=== PATIENT | male | born 1950 | race Asian ===

== ENCOUNTER 2016-10-27 09:42 | Outpatient (CLI) | payer MEDICARE, OTHER ==
--- NOTE | 2016-10-27 12:55 | XRAY Report ---
THREE-VIEW RIGHT FOOT: 10/27/2016 CLINICAL INDICATION: Pain. FINDINGS: AP, lateral, oblique views of the right foot demonstrate no evidence of fracture or disloc ation. The joint spaces are preserved. A small foreign body is noted in the plantar soft tissues, a t the level of the base of the proximal phalanx of the 1st toe. IMPRESSION: SOFT TISSUE SWELLING. TINY FOREIGN BODY IN THE PLANTAR SOFT TISSUES. JOB #: [id number] EXT JOB #:[id number]
== END 2016-10-27 09:43 | disposition home or self-care (01) ==
LOC: DI 09:42
PROVIDERS: ATTEND Internal Medicine
DX: S90.851A Superficial foreign body, right foot, initial encounter (principal)

== ENCOUNTER 2016-12-06 10:07 | Outpatient (CLI) | payer MEDICARE, OTHER | END 2016-12-06 10:08 | disposition home or self-care (01) | LOC: LAB.R 10:07 | PROVIDERS: ATTEND Urology | DX: R97.20 Elevated prostate specific antigen [PSA] (principal) | CPT/HCPCS: 84153 ==

== ENCOUNTER 2016-12-28 12:59 | Emergency (ER) | payer MEDICARE, OTHER ==
[2016-12-28 13:25] LABS: BILIRUBIN,URINE NEGATIVE (NEGATIVE)
[2016-12-28 13:28] LABS: UA CHARGE (STRIP ONLY) YES
[2016-12-28 13:58] LABS: BASOPHILS # (AUTO) 0.1 10^3/uL (0.0-0.1); BASOPHILS % (AUTO) 1.2 %; EOSINOPHILS # (AUTO) 0.2 10^3/uL (0.0-0.7); EOSINOPHILS % (AUTO) 2.5 %; HCT - HEMATOCRIT 42.8 % (42.0-52.0); HGB - HEMOGLOBIN 14.3 g/dL (14.0-18.0); LYMPHOCYTES # (AUTO) 1.7 10^3/uL (1.5-3.5); LYMPHOCYTES % (AUTO) 22.3 %; MEAN CORPUSCULAR HEMOGLOBIN 29.2 pg (27.0-31.0); MEAN CORPUSCULAR HGB CONC 33.5 g/dL (32.0-36.0); MEAN CORPUSCULAR VOLUME 87.3 fL (80.0-94.0); MEAN PLATELET VOLUME 7.6 fL (7.4-11.4); MONOCYTES # (AUTO) 0.5 10^3/uL (0.0-1.0); NEUTROPHILS # (AUTO) 5.1 10^3/uL (1.5-6.6); RED CELL DISTRIBUTION WIDTH 13.3 % (12.0-15.0); UNCORRECTED WHITE BLOOD COUNT 7.6 x10^3/uL; WHITE BLOOD COUNT 7.6 x10^3/uL (4.8-10.8)
[2016-12-28 14:08] LABS: PT - PROTHROMBIN TIME 11.2 secs (9.9-12.6)
[2016-12-28 14:10] LABS: ALBUMIN/GLOBULIN RATIO 1.2 (1.0-2.2); BILIRUBIN,TOTAL 0.5 mg/dL (0.2-1.0); CALCIUM 9.4 mg/dL (8.5-10.3); CREATININE 1.2 mg/dL (0.6-1.2); POTASSIUM 4.2 mmol/L (3.5-5.0); TOTAL PROTEIN 7.6 g/dL (6.7-8.2)
--- NOTE | 2016-12-28 14:46 | CT Preliminary Report ---
Exam: CT Head W/O IMPRESSION: 1. Mild chronic microvascular angiopathy. 2. No CT evidence of acute intracranial abnormality. [facility] SITE ID: [id number]
--- NOTE | 2016-12-28 14:49 | CT Report ---
EXAM: CT HEAD EXAM DATE: 12/28/2016 02:14 PM. CLINICAL HISTORY: Amaurosis fugax. COMPARISON: None. TECHNIQUE: Multiaxial CT images were obtained from the foramen magnum to the vertex. IV contrast: Non e. Reformats: Coronal. In accordance with CT protocol optimization, one or more of the following dose reduction techniques w ere utilized for this exam: automated exposure control, adjustment of mA and/or KV based on patient s ize, or use of iterative reconstructive technique. FINDINGS: Parenchyma: Mild patchy white matter hypoattenuation, compatible with chronic small vessel ischemic c hange. No intraparenchymal hemorrhage, mass effect, or CT findings of evolving acute/subacute infarct . Buchanan-white differentiation is distinct. Extraaxial Spaces: Normal for age. No subdural or epidural collections identified. Ventricles: Normal in size and position. Sinuses: Imaged paranasal sinuses, orbits, and mastoids show no significant abnormality. Bones: No evidence of fracture or calvarial defect. Other: Atherosclerotic calcifications in the bilateral cavernous internal carotid arteries. IMPRESSION: 1. Mild chronic microvascular angiopathy. 2. No CT evidence of acute intracranial abnormality. [facility] Referring Provider Line: [phone] SITE ID: [id number]
--- NOTE | 2016-12-28 14:51 | XRAY Preliminary Report ---
Exam: XR Chest 1 View IMPRESSION: No acute cardiopulmonary abnormality. [facility] SITE ID: [id number]
--- NOTE | 2016-12-28 14:54 | XRAY Report ---
EXAM: CHEST RADIOGRAPHY EXAM DATE: 12/28/2016 01:57 PM. CLINICAL HISTORY: Amaurosis fugax. COMPARISON: None. TECHNIQUE: 1 view. FINDINGS: Lungs/Pleura: No focal opacities are evident. No pleural effusion or pneumothorax. Mediastinum: Within exam limitations, cardiomediastinal contour is normal. Other: Small corticated osseous density in the right acromioclavicular interval, likely sequela of re mote trauma. IMPRESSION: No acute cardiopulmonary abnormality. [facility] Referring Provider Line: [phone] SITE ID: [id number]
--- NOTE | 2016-12-28 17:20 | ED Physician Documentation ---
History of Present Illness - Stated complaint Stated Complaint: BLURRY VISION/DIZZY - Chief complaint Chief Complaint: Neuro - Additonal information Additional information: Patient is a 66-year-old man with a history of dyslipidemia and borderline hypertension not currently treated who had a brief episode earlier today at rest where it felt like a dark shade came across his vision. He felt little lightheaded briefly and the symptoms resolved. He had a mild headache yesterday but has no history of migraine headaches. He denies any temporal tenderness. He had a brief episode of visual problems a couple weeks ago that were brief and he thinks involve the right eye. He has no other complaints. There is no weakness numbness tingling no chest pain shortness of breath. He does have any nausea, vomiting, constipation diarrhea or lower urinary symptoms. He has never had a stroke he does not think he has had an ultrasound of his carotids before. Review of systems: For pertinent positive and negatives in the review of systems please see the history of present illness, otherwise all other systems have been reviewed and are negative. Dragon disclaimer: Parts of this medical record were created using voice recognition technology. Because of the inherent limitations of this system, occasional same sounding word substitutions do occur and persist despite proofreading. Please read the document for context. PD PAST MEDICAL HISTORY - Past Medical History Past Medical History: Yes Cardiovascular: High cholesterol - Past Surgical History Past Surgical History: Yes Ortho: Knee replacement, Rotator cuff repair, Arthroscopic surgery Derm: Skin cancer surgery - Present Medications Home Medications: Ambulatory Orders Medication Instructions Recorded Confirmed Acyclovir 400 mg PO DAILY 12/28/16 12/28/16 Atorvastatin [Lipitor] 10 mg ORAL DAILY 12/28/16 12/28/16 Multivitamin [Multivitamins] 1 each PO 12/28/16 - Allergies Allergies/Adverse Reactions: Allergies Allergy/AdvReac Type Severity Reaction Status Date / Time ceftriaxone Allergy anaphylaxis Verified 12/28/16 13:07 - Social History Does the pt smoke?: No Smoking Status: Never smoker Does the pt drink ETOH?: Yes Does the pt have substance abuse?: No - Immunizations Immunizations are current?: Yes Immunizations: TDAP current <10years PD ED PE NORMAL - Vitals Vital signs reviewed: Yes - General General: Alert and oriented X 3, No acute distress, Well developed/nourished - HEENT HEENT: Atraumatic, PERRL, EOMI, Pharynx benign, Dentition benign - Neck Neck: Supple, no meningeal sign, No bony TTP, No JVD, No bruit - Cardiac Cardiac: RRR, No murmur, No gallop, No rub - Respiratory Respiratory: No respiratory distress, Clear bilaterally - Abdomen Abdomen: Normal bowel sounds, Soft, Non tender, Non distended - Back Back: No CVA TTP - Derm Derm: Normal color, Warm and dry, No rash, Other - Extremities Extremities: No deformity, No tenderness to palpate, Normal ROM s pain, No edema - Neuro Neuro: Alert and oriented X 3, 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, No motor deficit, No sensory deficit - Psych Psych: Normal mood, Normal affect Results - Vitals Vitals: Vital Signs - 24 hr 12/28/16 12/28/16 12/28/16 13:03 14:24 15:19 Temperature 36.6 C Heart Rate 84 83 74 Respiratory 16 15 18 Rate Blood Pressure 148/89 H 150/75 H 151/86 H O2 Saturation 100 99 98 Oxygen O2 Source Room air - Labs Labs: Laboratory Tests 12/28/16 12/28/16 12/28/16 13:18 13:50 13:50 WBC 7.6 RBC 4.90 Hgb 14.3 Hct 42.8 MCV 87.3 MCH 29.2 MCHC 33.5 RDW 13.3 Plt Count 268 MPV 7.6 Neut # 5.1 Lymph # 1.7 [place] # 0.5 Eos # 0.2 Baso # 0.1 Absolute Nucleated RBC 0.00 Nucleated RBCs 0.0 ESR PT 11.2 INR 1.0 Sodium Potassium Chloride Carbon Dioxide Anion Gap BUN Creatinine Estimated GFR (MDRD) Glucose Calcium Total Bilirubin AST ALT Alkaline Phosphatase Troponin I B-Natriuretic Peptide Total Protein Albumin Globulin Albumin/Globulin Ratio Lipase Urine Color YELLOW Urine Clarity CLEAR Urine pH 6.0 Ur Specific [place] <=1.005 Urine Protein NEGATIVE Urine Glucose (UA) NEGATIVE Urine Ketones NEGATIVE Urine Occult Blood NEGATIVE Urine Nitrite NEGATIVE Urine Bilirubin NEGATIVE Urine Urobilinogen 0.2 (NORMAL) Ur Leukocyte Esterase NEGATIVE Ur Microscopic Review NOT INDICATED 12/28/16 12/28/16 12/28/16 13:50 13:50 13:50 WBC RBC Hgb Hct MCV MCH MCHC RDW Plt Count MPV Neut # Lymph # [place] # Eos # Baso # Absolute Nucleated RBC Nucleated RBCs ESR PT INR Sodium 141 Potassium 4.2 Chloride 107 Carbon Dioxide 26 Anion Gap 8.0 BUN 11 Creatinine 1.2 Estimated GFR (MDRD) 60 L Glucose 141 H Calcium 9.4 Total Bilirubin 0.5 AST 27 ALT 30 Alkaline Phosphatase 72 Troponin I < 0.04 B-Natriuretic Peptide 12 Total Protein 7.6 Albumin 4.2 Globulin 3.4 Albumin/Globulin Ratio 1.2 Lipase 66 H Urine Color Urine Clarity Urine pH Ur Specific [place] Urine Protein Urine Glucose (UA) Urine Ketones Urine Occult Blood Urine Nitrite Urine Bilirubin Urine Urobilinogen Ur Leukocyte Esterase Ur Microscopic Review 12/28/16 13:50 WBC RBC Hgb Hct MCV MCH MCHC RDW Plt Count MPV Neut # Lymph # [place] # Eos # Baso # Absolute Nucleated RBC Nucleated RBCs ESR 1 PT INR Sodium Potassium Chloride Carbon Dioxide Anion Gap BUN Creatinine Estimated GFR (MDRD) Glucose Calcium Total Bilirubin AST ALT Alkaline Phosphatase Troponin I B-Natriuretic Peptide Total Protein Albumin Globulin Albumin/Globulin Ratio Lipase Urine Color Urine Clarity Urine pH Ur Specific [place] Urine Protein Urine Glucose (UA) Urine Ketones Urine Occult Blood Urine Nitrite Urine Bilirubin Urine Urobilinogen Ur Leukocyte Esterase Ur Microscopic Review PD MEDICAL DECISION MAKING - ED course Complexity details: reviewed results, re-evaluated patient, considered differential, d/w patient, d/w family, d/w PMD ED course: Well-appearing 66-year-old man with a history of hypertension who looks healthy. He presents with symptoms that might be consistent with amaurosis fugax. Workup was initiated which included EKG. Her EKG is perfectly normal without any ectopy. The [place], QRS QT intervals are normal there is no ST segment elevation depression or T-wave inversion overall was a normal EKG. Chest x-ray was performed and is negative. Ultrasound of the neck showed mild plaques with no significant stenosis. The patient's ESR was negative ruling out temporal arteritis. CT scan of the brain shows microvascular changes that are mild and not unsurprising given the patient's age of 66. Blood work was performed and is normal as well. Eye examination shows normal retinal vessels and sharp optic disc. Overall no obvious extraocular etiology was found I am recommending that the patient follow-up with his nuts and bolts assembler. I gave him a follow-up referral to our ophthalmologists if he is able to get into see him. I did ask him to follow-up with his physician Dr. reese. I did talk with the PA. I did recommend that he take a baby aspirin a day until we get this figured out. Disposition: To home Clinical impression: 1. Possible amaurosis fugax-workup failed to show extraocular or intraocular abnormalities in the emergency department Departure - Departure Disposition: Home, Self Care Clinical Impression: Amaurosis fugax Condition: Good Instructions: Vision Probs Follow-Up: Deangelo Arroyo MD [Provider Admit Priv/Credential] - Comments: You may have experienced a condition called amaurosis fugax. We did workup today including CAT scan of your head, ultrasound of your neck, lab work, and EKG all of which were normal. I would take a baby aspirin a day until he follow -up with her physician and the eye doctor and get this problem figured out. I have given your referral to our grain packer however you can also see your nuts and bolts assembler to make sure that your eyes are functioning normally. If this symptom recurs or any additional symptoms take place you may return for reevaluation.
[2016-12-28 17:29] VITALS: BP 159/91
--- NOTE | 2016-12-29 09:49 | Ultrasound Report ---
CAROTID DUPLEX: 12/28/2016 CLINICAL INDICATION: Amaurosis fugax, loss of vision. TECHNIQUE: Real-time sonographic vascular imaging was performed by the emergency medcl emt through the carotid arteries utilizing both color-flow and Doppler spectral analysis. Multiple door to door sales representative static images were saved for review. Vessel PSV cm/sec 2D Plaque Estimate % EDV cm/sec ICA/CCA PSV % Stenosis RCCA Prox 108 -- RCCA Dist 86 18 RECA 123 -- RT BULB 77 -- 18 0.9 GIL Prox 90 -- 18 1.0 GIL Mid 86 -- 25 1.0 GIL Dist 74 -- 26 0.9 RVA 44 RVA flow direction: Antegrade. Vessel PSV cm/sec 2D Plaque Estimate % EDV cm/sec ICA/CCA PSV % Stenosis LCCA Prox 139 -- LCCA Dist 78 20 LECA 73 -- LFT BULB 63 -- 20 0.8 LICA Prox 77 -- 20 1.0 LICA Mid 79 -- 27 1.0 LICA Dist 99 -- 36 1.3 LVA 40 LVA flow direction: Antegrade. Velocity criteria are extrapolated from diameter data as defined by the Society of Radiologists in Ultrasound Consensus Conference Radiology 2003; 229; 340-346. Degree of Stenosis % ICA PSV cm/sec Plaque Estimate % ICA/CCA RSV Ratio ICA EDV cm/sec Normal < 125 None < 2.0 < 40 <50 < 125 < 50 < 2.0 < 40 50-69 125 - 130 >/= 50 2.0 - 4.0 40 - 100 >/= 70 but less than near occlusion > 230 >/= 50 > 4.0 > 100 Near occlusion High, low, or undetectable Visible lumen Variable Variable Total occlusion Undetectable No detectable lumen Not applicable Not applicable FINDINGS RIGHT: There is mild plaquing in the right carotid bifurcation, without evidence of a focal hemodynamically significant stenosis. LEFT: There is mild plaquing in the left carotid bifurcation, without evidence of a focal hemodynamically significant stenosis. The vertebral arteries demonstrate antegrade flow bilaterally. IMPRESSION: NO EVIDENCE OF A HEMODYNAMICALLY SIGNIFICANT CAROTID STENOSIS. MTDD
== END 2016-12-28 17:29 | disposition home or self-care (01) ==
LOC: ED 12:59
DX: H53.8 Other visual disturbances (principal); R42 Dizziness and giddiness; E78.5 Hyperlipidemia, unspecified; I10 Essential (primary) hypertension; Z96.659 Presence of unspecified artificial knee joint
CPT/HCPCS: 36415; 70450; 71010; 80053; 81001; 81003; 83690; 83880; 84484; 85025; 85610; 85651; 87086; 93005; 93880; 99283

== ENCOUNTER 2018-02-28 09:35 | Outpatient (CLI) | payer MEDICARE, OTHER ==
[2018-02-28 19:59] LABS: BASOPHILS # (AUTO) 0.1 10^3/uL (0.0-0.1); BASOPHILS % (AUTO) 0.8 %; EOSINOPHILS # (AUTO) 0.2 10^3/uL (0.0-0.7); EOSINOPHILS % (AUTO) 2.9 %; HGB - HEMOGLOBIN 14.7 g/dL (14.0-18.0); LYMPHOCYTES # (AUTO) 1.6 10^3/uL (1.5-3.5); LYMPHOCYTES % (AUTO) 23.6 %; MEAN CORPUSCULAR HEMOGLOBIN 30.9 pg (27.0-31.0); MEAN CORPUSCULAR HGB CONC 35.2 g/dL (32.0-36.0); MEAN CORPUSCULAR VOLUME 87.8 fL (80.0-94.0); MEAN PLATELET VOLUME 8.5 fL (7.4-11.4); MONOCYTES # (AUTO) 0.6 10^3/uL (0.0-1.0); MONOCYTES % (AUTO) 8.1 %; NEUTROPHILS # (AUTO) 4.4 10^3/uL (1.5-6.6); NEUTROPHILS % (AUTO) 64.6 %; PLT - PLATELET COUNT 268 10^3/uL (130-450); RED BLOOD COUNT 4.75 10^6/uL (4.70-6.10); RED CELL DISTRIBUTION WIDTH 13.4 % (12.0-15.0); WHITE BLOOD COUNT 6.9 x10^3/uL (4.8-10.8)
[2018-02-28 20:21] LABS: ALBUMIN 4.2 g/dL (3.2-5.5); ALBUMIN/GLOBULIN RATIO 1.2 (1.0-2.2); ALKALINE PHOSPHATASE 74 IU/L (42-121); ALT ALANINE AMINOTRANSFERASE 27 IU/L (10-60); AST ASPARTATE AMINOTRANSFERASE 28 IU/L (10-42); BILIRUBIN,TOTAL 0.8 mg/dL (0.2-1.0); BUN - BLOOD UREA NITROGEN 14 mg/dL (6-20); CALCIUM 9.1 mg/dL (8.5-10.3); CARBON DIOXIDE - CO2 26 mmol/L (21-32); CHLORIDE 101 mmol/L (101-111); CHOLESTEROL 182 mg/dL; CREATININE 1.1 mg/dL (0.6-1.2); GFR - MDRD 66 (>89); GLUCOSE 86 mg/dL (70-100); HDL CHOLESTEROL 61 mg/dL; LDL CHOLESTEROL,CALCULATED 78 mg/dL; LDL/HDL RATIO 1.3 (<3.6); SODIUM 134 mmol/L (135-145); TOTAL PROTEIN 7.6 g/dL (6.7-8.2); VLDL CHOLESTEROL 43 mg/dL
== END 2018-02-28 23:59 | disposition home or self-care (01) ==
LOC: LAB.R 09:35
PROVIDERS: ATTEND Internal Medicine
DX: R03.0 Elevated blood-pressure reading, without diagnosis of hypertension (principal); E78.5 Hyperlipidemia, unspecified; Z12.5 Encounter for screening for malignant neoplasm of prostate; R73.01 Impaired fasting glucose
CPT/HCPCS: 80053; 80061; 84443; 85025; G0103; 83721; 84153

== ENCOUNTER 2018-12-08 00:52 | Emergency (ER) | payer MEDICARE, OTHER ==
--- NOTE | 2018-12-08 02:33 | ED Physician Documentation ---
PD HPI ABD PAIN - Stated complaint Stated Complaint: ABD DISTENTION - Chief complaint Chief Complaint: Abd Pain - History obtained from History obtained from: Patient - History of Present Illness Timing - onset: Yesterday Timing - details: Gradual onset Location: Epigastric Associated symptoms: No: Fever, Nausea, Vomiting, Diarrhea, Constipation Similar symptoms before: Has not had sx before Recently seen: Not recently seen - Additional information Additional information: c/o pruritic erythematous area on abdomen since yesterday. Recently had long motorcycle ride and symptoms seemed to start during this trip. Also notes abdominal swelling in same area without significant tenderness Review of Systems Constitutional: denies: Fever, Chills, Sweats GI: reports: Abdominal Swelling (intermittent, midline). denies: Abdominal Pain, Nausea, Vomiting, Constipation, Diarrhea Skin: reports: Rash PD PAST MEDICAL HISTORY - Past Medical History Cardiovascular: High cholesterol Musculoskeletal: Osteoarthritis Other Past Medical History: skin cancers. inguinal hernia with repair at age 3 - Past Surgical History Past Surgical History: Yes Ortho: Knee replacement, Rotator cuff repair, Arthroscopic surgery Derm: Skin cancer surgery - Present Medications Home Medications: Ambulatory Orders Medication Instructions Recorded Confirmed Acyclovir 400 mg PO DAILY PRN 12/28/16 12/08/18 Atorvastatin [Lipitor] 10 mg ORAL DAILY 12/28/16 12/08/18 Multivitamin [Multivitamins] 1 each PO DAILY 12/28/16 12/08/18 Hydrocortisone Valerate 1 film TP BID #1 cream..g. 12/08/18 Mupirocin Calcium [Mupirocin] 1 film TP BID #1 cream..g. 12/08/18 Sulfamethox/Trimeth 800/160 1 each PO BID #14 tablet 12/08/18 [Bactrim Ds 800/160] - Allergies Allergies/Adverse Reactions: Allergies Allergy/AdvReac Type Severity Reaction Status Date / Time ceftriaxone Allergy anaphylaxis Verified 12/08/18 01:05 - Social History Does the pt smoke?: No Smoking Status: Former smoker Does the pt drink ETOH?: Yes ETOH Use: Beer Does the pt have substance abuse?: No - Immunizations Immunizations are current?: Yes Immunizations: TDAP current <10years - POLST Patient has POLST: No PD ED PE NORMAL - Vitals Vital signs reviewed: Yes - General General: Alert and oriented X 3, No acute distress, Well developed/nourished - Abdomen Abdomen: Normal bowel sounds, Soft, Non tender, Non distended PD ED PE EXPANDED - Abdomen Abdomen Visual: 1 - swelling (midline symmetric swelling that only appears with valsalva (starting to sit up, eg), and is nontender and soft and reduces immediately simply with lying supine and relaxing abdominal wall muscles) 2 - rash (oval-shaped flat erythema with sharp margins, 3cm x 2cm without fluctuance) Results - Vitals Vitals: Vital Signs - 24 hr 12/08/18 12/08/18 12/08/18 01:01 01:14 02:54 Temperature 36.3 C L 36.8 C 36.4 C L Heart Rate 93 85 82 Respiratory 16 18 16 Rate Blood Pressure 150/86 H 152/86 H 146/93 H O2 Saturation 96 100 96 12/08/18 03:15 Temperature 36.7 C Heart Rate 75 Respiratory 16 Rate Blood Pressure 141/89 H O2 Saturation 96 Oxygen O2 Source Room air PD MEDICAL DECISION MAKING - ED course Complexity details: considered differential, d/w patient ED course: lesion on abdominal wall is s/o cellulitis and thus will cover with topical and PO antibiotic. its appearance is related temporally to a long motorcycle trip and this, combined with the intense pruritis, could also be c/w contact dermatitis and thus also rx topical steroid. The midline hernia is a coincident finding and does not need emergent testing or treatment Departure - Departure Disposition: 01 Home, Self Care Clinical Impression: Abdominal hernia, Cellulitis of abdominal wall Condition: Good Instructions: ED Infec Skin Cellulitis Follow-Up: Medardo Herndon MD [Primary Care Provider] - Within 1 week Prescriptions: Hydrocortisone Valerate 1 film TP BID #1 cream..g. Mupirocin Calcium [Mupirocin] 1 film TP BID #1 cream..g. Sulfamethox/Trimeth 800/160 [Bactrim Ds 800/160] 1 each PO BID #14 tablet Discharge Date/Time: 12/08/18 03:22
[2018-12-08] MEDS ORDERED: SULFAMETH/TRIMETH DS 800/160 MG TABLET PO STA (03:04)
[2018-12-08] MEDS ORDERED: MUPIROCIN 2% OINT 1 GM TOP STA (03:04)
[2018-12-08 03:16] VITALS: BP 141/89
== END 2018-12-08 03:22 | disposition home or self-care (01) ==
LOC: ED 00:52
DX: L03.311 Cellulitis of abdominal wall (principal); K46.9 Unspecified abdominal hernia without obstruction or gangrene; Z87.891 Personal history of nicotine dependence
CPT/HCPCS: 99283; A9270

== ENCOUNTER 2019-12-17 10:04 | Outpatient (CLI) | payer MEDICARE, OTHER ==
[2019-12-17 10:24] LABS: BASOPHILS # (AUTO) 0.1 10^3/uL (0.0-0.1); BASOPHILS % (AUTO) 0.8 %; EOSINOPHILS # (AUTO) 0.1 10^3/uL (0.0-0.7); EOSINOPHILS % (AUTO) 1.9 %; HGB - HEMOGLOBIN 14.6 g/dL (14.0-18.0); LYMPHOCYTES # (AUTO) 1.7 10^3/uL (1.5-3.5); MEAN CORPUSCULAR HEMOGLOBIN 30.2 pg (27.0-31.0); MEAN CORPUSCULAR HGB CONC 33.7 g/dL (32.0-36.0); MEAN CORPUSCULAR VOLUME 89.5 fL (80.0-94.0); MEAN PLATELET VOLUME 9.5 fL (7.4-11.4); MONOCYTES # (AUTO) 0.7 10^3/uL (0.0-1.0); MONOCYTES % (AUTO) 8.8 %; NEUTROPHILS # (AUTO) 4.8 10^3/uL (1.5-6.6); NEUTROPHILS % (AUTO) 65.1 %; PLT - PLATELET COUNT 311 10^3/uL (130-450); RED BLOOD COUNT 4.84 10^6/uL (4.70-6.10); RED CELL DISTRIBUTION WIDTH 12.6 % (12.0-15.0); WHITE BLOOD COUNT 7.4 x10^3/uL (4.8-10.8)
[2019-12-17 10:39] LABS: ALBUMIN 4.3 g/dL (3.2-5.5); ALBUMIN/GLOBULIN RATIO 1.2 (1.0-2.2); ALKALINE PHOSPHATASE 75 IU/L (42-121); ALT ALANINE AMINOTRANSFERASE 22 IU/L (10-60); AST ASPARTATE AMINOTRANSFERASE 22 IU/L (10-42); BILIRUBIN,TOTAL 0.8 mg/dL (0.2-1.0); BUN - BLOOD UREA NITROGEN 17 mg/dL (6-20); CALCIUM 9.4 mg/dL (8.5-10.3); CARBON DIOXIDE - CO2 25 mmol/L (21-32); CHLORIDE 104 mmol/L (101-111); CHOL/HDL RATIO 3.1 (<5.0); CHOLESTEROL 183 mg/dL; CREATININE 1.1 mg/dL (0.6-1.2); GLUCOSE 101 mg/dL (70-100); HDL CHOLESTEROL 59 mg/dL; LDL CHOLESTEROL,CALCULATED 102 mg/dL; LDL/HDL RATIO 1.7 (<3.6); SODIUM 138 mmol/L (135-145); TOTAL PROTEIN 7.8 g/dL (6.7-8.2); VLDL CHOLESTEROL 22 mg/dL
== END 2019-12-17 10:05 | disposition home or self-care (01) ==
LOC: LAB 10:04
PROVIDERS: ATTEND Family Medicine
DX: Z01.84 Encounter for antibody response examination (principal); E78.5 Hyperlipidemia, unspecified; E66.3 Overweight; Z68.25 Body mass index [BMI] 25.0-25.9, adult
CPT/HCPCS: 36415; 80053; 80061; 83721; 85025; 86769

== ENCOUNTER 2020-01-27 17:47 | Outpatient (CLI) | payer MEDICARE, OTHER | END 2020-01-27 17:48 | disposition home or self-care (01) | LOC: COV 17:47 | PROVIDERS: ATTEND Family Medicine | DX: R50.9 Fever, unspecified (principal); R05 Cough; M79.10 Myalgia, unspecified site; Z20.828 Contact with and (suspected) exposure to other viral communicable diseases ==

== ENCOUNTER 2020-05-14 10:14 | Outpatient (CLI) | payer MEDICARE, OTHER | END 2020-05-14 10:15 | disposition home or self-care (01) | LOC: LAB 10:14 | PROVIDERS: ATTEND Urology | DX: R97.20 Elevated prostate specific antigen [PSA] (principal); N40.1 Benign prostatic hyperplasia with lower urinary tract symptoms | CPT/HCPCS: 36415; 84153 ==

== ENCOUNTER 2020-11-11 13:15 | Outpatient (CLI) | payer MEDICARE, OTHER ==
--- NOTE | 2020-11-11 16:40 | MRI Report ---
PROCEDURE: Shoulder LT W/O INDICATIONS: CHRONIC LEFT SHOULDER PAIN TECHNIQUE: Noncontrast oblique coronal T2 fast spin echo with fat saturation, oblique sagittal T1 spin echo and T2 fast spin echo with fat saturation, axial T1 spin echo and T2 fast spin echo with fat saturation t hrough the shoulder. COMPARISON: None. FINDINGS: Image quality: There is motion artifact limiting evaluation. Rotator cuff: There is mild tendinopathy in the distal supraspinatus with minimal bursal sided frayi ng, but the majority of the supraspinatus appears grossly intact. The infraspinatus, subscapularis, a nd teres minor appears intact. No rotator cuff muscle atrophy on sagittal images. Bones and bursae: No bone marrow contusions or fractures. There is moderate acromioclavicular joint degeneration. The acromion demonstrates conventional anatomy, without an os acromiale. A small yunier unt of subacromial/subdeltoid bursal fluid is present. There is mild glenohumeral joint degeneration. Capsule and soft tissues: There is mild tearing in the posterosuperior labrum. In the absence of int ra-articular contrast, the glenohumeral ligaments appear intact. The long head of the biceps tendon demonstrates normal location and morphology. The coracohumeral ligament is normal in thickness. IMPRESSION: 1. Mild tendinopathy of the distal supraspinatus which appears grossly intact with minimal bursal merced ed fraying distally. 2. Moderate acromioclavicular joint degeneration with a small amount of subacromial/subdeltoid bursal fluid. 3. Mild tearing in the posterosuperior labrum. Reviewed by: Cristian Bacon MD on 11/11/2020 4:38 PM PDT Approved by: Cristian Bacon MD on 11/11/2020 4:38 PM PDT Station ID: [id number]
== END 2020-11-11 13:16 | disposition home or self-care (01) ==
LOC: DI 13:15
PROVIDERS: ATTEND Physical Medicine & Rehabilitation
DX: M75.92 Shoulder lesion, unspecified, left shoulder (principal); S43.492A Other sprain of left shoulder joint, initial encounter

== ENCOUNTER 2021-02-10 10:09 | Outpatient (CLI) | payer MEDICARE, OTHER ==
[2021-02-10 10:38] LABS: BASOPHILS # (AUTO) 0.1 10^3/uL (0.0-0.1); BASOPHILS % (AUTO) 0.8 %; EOSINOPHILS # (AUTO) 0.1 10^3/uL (0.0-0.7); EOSINOPHILS % (AUTO) 1.3 %; HGB - HEMOGLOBIN 13.8 g/dL (14.0-18.0); LYMPHOCYTES # (AUTO) 1.7 10^3/uL (1.5-3.5); LYMPHOCYTES % (AUTO) 20.1 %; MEAN CORPUSCULAR HEMOGLOBIN 28.8 pg (27.0-31.0); MEAN CORPUSCULAR HGB CONC 32.1 g/dL (32.0-36.0); MEAN CORPUSCULAR VOLUME 89.8 fL (80.0-94.0); MEAN PLATELET VOLUME 9.4 fL (7.4-11.4); MONOCYTES # (AUTO) 0.7 10^3/uL (0.0-1.0); MONOCYTES % (AUTO) 8.1 %; NEUTROPHILS # (AUTO) 5.8 10^3/uL (1.5-6.6); NEUTROPHILS % (AUTO) 69.3 %; PLT - PLATELET COUNT 259 10^3/uL (130-450); RED BLOOD COUNT 4.79 10^6/uL (4.70-6.10); RED CELL DISTRIBUTION WIDTH 13.1 % (12.0-15.0); WHITE BLOOD COUNT 8.4 x10^3/uL (4.8-10.8)
[2021-02-10 10:57] LABS: ALBUMIN 4.1 g/dL (3.2-5.5); ALBUMIN/GLOBULIN RATIO 1.3 (1.0-2.2); ALKALINE PHOSPHATASE 71 IU/L (42-121); ALT ALANINE AMINOTRANSFERASE 29 IU/L (10-60); AST ASPARTATE AMINOTRANSFERASE 27 IU/L (10-42); BILIRUBIN,TOTAL 0.7 mg/dL (0.2-1.0); BUN - BLOOD UREA NITROGEN 21 mg/dL (6-20); CALCIUM 9.6 mg/dL (8.5-10.3); CARBON DIOXIDE - CO2 26 mmol/L (21-32); CHLORIDE 106 mmol/L (101-111); CHOLESTEROL 178 mg/dL; CREATININE 1.1 mg/dL (0.6-1.2); GFR - MDRD 66 (>89); GLUCOSE 117 mg/dL (70-100); HDL CHOLESTEROL 60 mg/dL; LDL CHOLESTEROL,CALCULATED 83 mg/dL; LDL/HDL RATIO 1.4 (<3.6); POTASSIUM 4.2 mmol/L (3.5-5.0); SODIUM 140 mmol/L (135-145); TOTAL PROTEIN 7.2 g/dL (6.7-8.2); TRIGLYCERIDES 174 mg/dL; VLDL CHOLESTEROL 35 mg/dL
== END 2021-02-10 10:10 | disposition home or self-care (01) ==
LOC: LAB 10:09
PROVIDERS: ATTEND Family Medicine
DX: E78.5 Hyperlipidemia, unspecified (principal); R97.20 Elevated prostate specific antigen [PSA]
CPT/HCPCS: 36415; 80053; 80061; 83721; 84153; 85025

== ENCOUNTER 2021-09-15 14:50 | Outpatient (CLI) | payer MEDICARE, OTHER | END 2021-09-15 14:51 | disposition home or self-care (01) | LOC: LAB 14:50 | PROVIDERS: ATTEND Urology | DX: Z12.5 Encounter for screening for malignant neoplasm of prostate (principal) | CPT/HCPCS: 36415; G0103; 84153 ==

== ENCOUNTER 2021-12-30 13:07 | Outpatient (CLI) | payer MEDICARE, OTHER ==
[2021-12-30 13:22] LABS: BASOPHILS # (AUTO) 0.1 10^3/uL (0.0-0.1); BASOPHILS % (AUTO) 0.8 %; EOSINOPHILS # (AUTO) 0.1 10^3/uL (0.0-0.7); EOSINOPHILS % (AUTO) 1.6 %; HCT - HEMATOCRIT 42.6 % (42.0-52.0); HGB - HEMOGLOBIN 14.4 g/dL (14.0-18.0); LYMPHOCYTES # (AUTO) 1.8 10^3/uL (1.5-3.5); LYMPHOCYTES % (AUTO) 19.5 %; MEAN CORPUSCULAR HEMOGLOBIN 30.3 pg (27.0-31.0); MEAN CORPUSCULAR HGB CONC 33.8 g/dL (32.0-36.0); MEAN CORPUSCULAR VOLUME 89.7 fL (80.0-94.0); MEAN PLATELET VOLUME 9.1 fL (7.4-11.4); MONOCYTES # (AUTO) 0.7 10^3/uL (0.0-1.0); MONOCYTES % (AUTO) 7.9 %; NEUTROPHILS # (AUTO) 6.3 10^3/uL (1.5-6.6); PLT - PLATELET COUNT 294 10^3/uL (130-450); RED BLOOD COUNT 4.75 10^6/uL (4.70-6.10)
[2021-12-30 13:54] LABS: ALBUMIN 4.3 g/dL (3.2-5.5); ALBUMIN/GLOBULIN RATIO 1.3 (1.0-2.2); ALKALINE PHOSPHATASE 78 IU/L (42-121); ALT ALANINE AMINOTRANSFERASE 21 IU/L (10-60); AST ASPARTATE AMINOTRANSFERASE 22 IU/L (10-42); BILIRUBIN,TOTAL 0.5 mg/dL (0.2-1.0); BUN - BLOOD UREA NITROGEN 14 mg/dL (6-20); CALCIUM 9.9 mg/dL (8.5-10.3); CARBON DIOXIDE - CO2 29 mmol/L (21-32); CHLORIDE 105 mmol/L (101-111); CHOL/HDL RATIO 3.4 (<5.0); CHOLESTEROL 203 mg/dL; CREATININE 1.1 mg/dL (0.6-1.2); GFR - MDRD 66 (>89); GLUCOSE 119 mg/dL (70-100); HDL CHOLESTEROL 59 mg/dL; LDL CHOLESTEROL,CALCULATED 93 mg/dL; LDL/HDL RATIO 1.6 (<3.6); POTASSIUM 4.5 mmol/L (3.5-5.0); SODIUM 141 mmol/L (135-145); TOTAL PROTEIN 7.6 g/dL (6.7-8.2); TRIGLYCERIDES 257 mg/dL; VLDL CHOLESTEROL 51 mg/dL
== END 2021-12-30 13:08 | disposition home or self-care (01) ==
LOC: LAB 13:07
PROVIDERS: ATTEND Family Medicine
DX: E78.5 Hyperlipidemia, unspecified (principal)
CPT/HCPCS: 36415; 80053; 80061; 83721; 85025

== ENCOUNTER 2022-11-21 14:18 | Outpatient (CLI) | payer MEDICARE, OTHER | END 2022-11-21 14:19 | disposition home or self-care (01) | LOC: LAB 14:18 | PROVIDERS: ATTEND Physician Assistant Medical | DX: R39.9 Unspecified symptoms and signs involving the genitourinary system (principal); Z12.5 Encounter for screening for malignant neoplasm of prostate | CPT/HCPCS: 36415; G0103; 84153 ==

== ENCOUNTER 2023-11-22 14:58 | Outpatient (CLI) | payer MEDICARE, OTHER ==
[2023-11-22 17:46] LABS: PSA TOTAL 5.004 ng/mL (0.000-2.000)
== END 2023-11-22 14:59 | disposition home or self-care (01) ==
LOC: LAB 14:58
PROVIDERS: ATTEND Physician Assistant Medical
DX: Z12.5 Encounter for screening for malignant neoplasm of prostate (principal)
CPT/HCPCS: 36415; 84153; 84154

== ENCOUNTER 2023-11-28 07:59 | Outpatient (CLI) | payer MEDICARE, OTHER ==
[2023-11-28 08:15] LABS: BASOPHILS # (AUTO) 0.1 10^3/uL (0.0-0.1); BASOPHILS % (AUTO) 1.4 %; EOSINOPHILS # (AUTO) 0.3 10^3/uL (0.0-0.7); EOSINOPHILS % (AUTO) 4.6 %; HCT - HEMATOCRIT 41.8 % (42.0-52.0); HGB - HEMOGLOBIN 13.7 g/dL (14.0-18.0); LYMPHOCYTES # (AUTO) 1.9 10^3/uL (1.5-3.5); LYMPHOCYTES % (AUTO) 28.6 %; MEAN CORPUSCULAR HEMOGLOBIN 29.3 pg (27.0-31.0); MEAN CORPUSCULAR HGB CONC 32.8 g/dL (32.0-36.0); MEAN CORPUSCULAR VOLUME 89.3 fL (80.0-94.0); MEAN PLATELET VOLUME 9.3 fL (7.4-11.4); MONOCYTES # (AUTO) 0.6 10^3/uL (0.0-1.0); MONOCYTES % (AUTO) 8.9 %; NEUTROPHILS # (AUTO) 3.7 10^3/uL (1.5-6.6); NEUTROPHILS % (AUTO) 56.2 %; PLT - PLATELET COUNT 283 10^3/uL (130-450); RED BLOOD COUNT 4.68 10^6/uL (4.70-6.10); RED CELL DISTRIBUTION WIDTH 13.1 % (12.0-15.0); WHITE BLOOD COUNT 6.5 x10^3/uL (4.8-10.8)
[2023-11-28 08:29] LABS: ALBUMIN 4.2 g/dL (3.2-5.5); ALBUMIN/GLOBULIN RATIO 1.5 (1.0-2.2); BILIRUBIN,TOTAL 0.7 mg/dL (0.2-1.0); CREATININE 1.2 mg/dL (0.6-1.3); POTASSIUM 4.2 mmol/L (3.5-4.5)
== END 2023-11-28 08:00 | disposition home or self-care (01) ==
LOC: LAB 07:59
PROVIDERS: ATTEND Registered Nurse
DX: Z13.0 Encounter for screening for diseases of the blood and blood-forming organs and certain disorders involving the immune mechanism (principal); Z13.228 Encounter for screening for other metabolic disorders
CPT/HCPCS: 36415; 80053; 85025

== ENCOUNTER 2023-12-27 08:06 | Outpatient (CLI) | payer MEDICARE, OTHER ==
--- NOTE | 2023-12-27 21:09 | Ultrasound Report ---
PROCEDURE: Aorta Screening INDICATIONS: HIST OF TOBACCO USE TECHNIQUE: Real time scanning was performed of the aorta and iliac arteries, with image documentatio n. COMPARISON: None. FINDINGS: Aorta: Proximal aortic diameter measures 2.9 cm. Mid-aorta measures 2.3 cm. Distal aortic diameter is 1.9 cm. Mild atherosclerotic plaques of the distal aorta. Iliac arteries: Right common iliac artery measures 1.0 cm. Left common iliac artery measures 1.0 cm . IMPRESSION: No abdominal aortic aneurysm. Mild ectasia of the proximal aorta, recommend five-year follow-up ultra sound. Recommended intervals for follow-up imaging of ectatic aortas and abdominal aortic aneurysms, per ACR consensus guidelines: 2.5-2.9 cm: 5 years 3.0-3.4 cm: 3 years 3.5-3.9 cm: 2 years 4.0-4.4 cm: 1 year 4.5-4.9 cm: 6 months + endovascular referral 5.0-5.5 cm: 3-6 months + endovascular referral Reviewed by: Chadd Falcon MD on 12/27/2023 9:07 PM PDT Approved by: Chadd Falcon MD on 12/27/2023 9:07 PM PDT Station ID: [id number]
== END 2023-12-27 08:07 | disposition home or self-care (01) ==
LOC: DI 08:06
PROVIDERS: ATTEND Registered Nurse
DX: Z13.6 Encounter for screening for cardiovascular disorders (principal); I77.811 Abdominal aortic ectasia; Z87.891 Personal history of nicotine dependence